=== PATIENT | male | born 1990 | race Caucasian/White ===

== ENCOUNTER 2024-09-03 18:12 | Emergency (ER) | payer SELFPAY ==
[2024-09-03 18:29] VITALS: BP 178/106; PULSE 129; TEMP 39.1; O2SAT 98; BMI 40.9
--- NOTE | 2024-09-03 18:36 | CT_ITS ---
[address] [address] Patient Name: DOROTHY REED MRN: [id number] date: 1990 Sex: M Assigned Patient Location: ED.MAIN Current Patient Location: ED.MAIN Accession/Order Number: [id number] Exam Date: 09/03/2024 19:20 Report Date: 09/03/2024 20:31 At the request of: TAMMY WALKER Procedure: CT abdomen pelvis w con EXAM: CT abdomen pelvis w con TECHNIQUE: Axial CT images were obtained of the abdomen and pelvis with intravenous contrast. Sagittal and coronal reformatted images were also obtained. Dose reduction techniques were achieved by using automated exposure control and/or adjustment of mA and/or kV according to patient size and/or use of iterative reconstruction technique. HISTORY: Abdominal pain COMPARISON: None. FINDINGS: Lower chest: The lower lungs are clear. Liver: Diffuse decreased attenuation of liver consistent with steatosis. Gallbladder: The gallbladder is unremarkable. There is no intra or extrahepatic biliary dilatation. Pancreas: The pancreas is homogeneous without evidence for mass lesion or inflammation. Spleen: The spleen is unremarkable without evidence for mass lesion. Adrenal glands: The adrenal glands are unremarkable Kidneys and bladder: The kidneys are unremarkable with no evidence for mass lesion, hydronephrosis or inflammation. The ureters demonstrate normal caliber. The urinary bladder is unremarkable. GI Tract: Stomach is unremarkable. No small bowel obstruction. There is wall thickening and inflammation of the terminal ileum. The appendix is thickened and ill-defined distally with severe surrounding inflammation.Moderate diverticulosis of the distal descending colon Reproductive: Unremarkable Lymph nodes: No retroperitoneal or abdominal lymphadenopathy. Vascular: The aorta is not dilated. Mesenteric, renal and iliac arteries are patent. Peritoneum: Inflammation in the right lower quadrant mesentery and pericolic fat. No evidence for focal abscess. Abdominal wall: Unremarkable without acute abnormality. CT/CT abdomen pelvis w con IMPRESSION: Findings suggesting severe acute appendicitis. The distal end of the appendix is poorly defined and rupture is not excluded. No evidence for focal abscess. Secondary wall thickening of the terminal ileum. Electronically authenticated by: CRISTIAN PINK Date: 09/03/2024 20:31
--- NOTE | 2024-09-03 18:37 | ED_ITS ---
HPI HPI - General Adult General Chief complaint: Abdominal Pain Stated complaint: Abdominal Pain Time Seen by Provider: 09/03/24 18:36 Source: patient Mode of arrival: walk-in History of Present Illness HPI narrative: Patient is a 34-year-old male who presents to the emergency department for a 1 week history of flulike illness. Patient states he started with cough and congestion and generalized abdominal pain. He states in the last 2 days the pain is localized to the right lower quadrant and is associated with diarrhea. He has been running fevers, last dose of Tylenol was 7 to 8 hours ago. He denies vomiting. No previous abdominal surgeries. No sick contacts in the home. Related Data Home Medications ?Medication ?Instructions ?Recorded ?Confirmed No Known Home Medications 09/03/24 09/03/24 Allergies Allergy/AdvReac Type Severity Reaction Status Date / Time Penicillins Allergy Severe Unknown Verified 09/03/24 18:29 Opioid HPI Opioid Management Most Recent Opioid Data: Last Pain Scale 2 09/03/24 19:33 09/03/24 Last ED Pain Assessment 09/03/24 19:33 Review of Systems ROS Constitutional Reports: fever; Denies: chills Ears, nose, mouth, and throat Reports: nasal congestion; Denies: throat pain Cardiovascular Denies: chest pain Respiratory Denies: shortness of breath Gastrointestinal Reports: abdominal pain and diarrhea; Denies: nausea or vomiting Musculoskeletal Denies: back pain Integumentary/Breast Denies: rash Neurological Denies: numbness in extremities or weakness in extremities Hematologic/Lymphatic Denies: easy bruising or easy bleeding [facility] Social History Little interest or pleasure in doing things: not at all Feeling down, depressed, or hopeless: not at all Exam Narrative Exam Narrative: Gen.: Awake, alert, in no distress Head: Normocephalic, atraumatic ENT: Moist mucous membranes Respiratory: No respiratory distress, lungs clear bilaterally Cardio: Tachycardia Gastrointestinal: Abdomen is soft, nondistended and tender to palpation with involuntary guarding to the right lower quadrant Extremities: Moves extremities equally Psych: Normal mood and affect Neuro: No focal neuro deficit Skin: Warm, dry, intact Constitutional Vital Signs, click to edit/add: Last Vital Signs Temp 102.3 F H 09/03/24 18:29 Pulse 113 H 09/03/24 20:39 Resp 24 H 09/03/24 20:39 BP 111/66 09/03/24 20:39 Pulse Ox 96 09/03/24 20:39 O2 Del Method Room Air 09/03/24 20:39 Course Vital Signs Vital signs: Vital Signs Temperature 102.3 F H 09/03/24 18:29 Pulse Rate 129 H 09/03/24 18:29 Respiratory Rate 18 09/03/24 18:29 Blood Pressure 178/106 H 09/03/24 18:29 Pulse Oximetry 98 09/03/24 18:29 Oxygen Delivery Method Room Air 09/03/24 18:29 Temperature 102.3 F H 09/03/24 18:29 Pulse Rate 113 H 09/03/24 20:39 Respiratory Rate 24 H 09/03/24 20:39 Blood Pressure 111/66 09/03/24 20:39 Pulse Oximetry 96 09/03/24 20:39 Oxygen Delivery Method Room Air 09/03/24 20:39 Medical Decision Making MDM Narrative Medical decision making narrative: Patient found to have fever, tachycardia but stable blood pressure. He was treated with Dilaudid, Toradol with improvement of fever and Zofran with IV fluids. He remains mildly tachycardic. Laboratory studies show leukocytosis with no bandemia and normal lactic acid. CT was read by the radiologist showing severe acute appendicitis, unable to fully assess for a possible rupture. Patient is allergic to penicillin so antibiotics were started, blood cultures are pending. Patient was made aware that we do not have surgical services at this facility and he will require transfer to a different facility in the area. Patient's family member requested transfer to [facility], however Dr. Quevedo ([id number]) declined the transfer. Patient is comfortable with transfer to [facility] and was accepted by [facility] surgeon, Dr. 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 Patient is stable with improved vital signs at this time pending transfer to [facility] Critical care time 35 minutes SHARED APC VISIT, PHYSICIAN ATTESTATION: [id number] I performed a substantive part of the MDM during the patient?s E/M visit. I personally evaluated and examined the patient. I personally made or approved the documented management plan and acknowledge its risk of complications. Medical Records Medical records reviewed: Yes I reviewed the patient's medical records Lab Data Lab results reviewed: Yes I reviewed the patient's lab results Labs: Lab Results 09/03/24 Range/Units 18:47 WBC 19.3 H (4.0-11.0) 10^3/uL RBC 4.23 L (4.70-6.10) 10^6/uL Hgb 12.7 L (14.0-18.0) g/dL Hct 38.4 L (42.0-54.0) % MCV 90.8 (80.0-94.0) fL MCH 30.0 (25.9-34.0) pg MCHC 33.1 (29.9-35.2) g/dL RDW 13.2 (11.0-15.0) % Plt Count 387 (150-450) 10^3/uL MPV 10.7 (9.5-13.5) fL Seg Neuts % (Manual) 78.0 H (43.0-75.0) Lymphocytes % (Manual) 11.0 L (20.5-60.0) % Monocytes % (Manual) 11.0 (1.7-12.0) % Eosinophils % (Manual) 0.0 L (0.9-7.0) % Basophils % (Manual) 0.0 L (0.2-2.0) % Neutrophils # (Manual) 15.05 H (1.4-6.5) 10^3/uL Lymphocytes # (Manual) 2.12 (1.20-3.80) 10^3/uL Monocytes # (Manual) 2.12 H (0.30-0.80) 10^3/uL Eosinophils # (Manual) 0.00 (0.00-0.70) 10^3/uL Basophils # (Manual) 0.00 (0.00-0.10) 10^3/uL ESR 73 H (<=15) mm/hr VBG pH 7.447 H (7.330-7.430) VBG pCO2 39.8 L (40.0-52.0) mmHg Sodium 137 (136-145) mmol/L Potassium 3.8 (3.5-5.1) mmol/L Chloride 100 (98-107) mmol/L Carbon Dioxide 27.7 (21.0-32.0) mmol/L Anion Gap 13.1 BUN 11.0 (7.0-18.0) mg/dL Creatinine 1.35 H (0.70-1.30) mg/dL Est GFR ( Amer) >60 (>=60 mL/min/1.73m^2) Est GFR (Non-Af Amer) >60 (>=60 mL/min/1.73m^2) BUN/Creatinine Ratio 8.1 Glucose 115 H (74-106) mg/dL Lactate 1.2 (0.4-2.0) mmol/L Calcium 8.8 (8.5-10.1) mg/dL Total Bilirubin 0.5 (0.2-1.0) mg/dL AST 29 (15-37) U/L ALT 44 (16-63) U/L Alkaline Phosphatase 92 (46-116) U/L C-Reactive Protein 10.43 H (<=0.50) mg/dL Total Protein 7.9 (6.4-8.2) g/dL Albumin 3.2 L (3.4-5.0) g/dL Globulin 4.7 g/dL Albumin/Globulin Ratio 0.7 Monoscreen Negative (NEGATIVE) Imaging Data CT scan - abdomen: Attestation: I have reviewed the pertinent imaging results. Radiologist's impression: ITS Impressions Abdomen/Pelvis CT 09/03/24 18:36 IMPRESSION: Findings suggesting severe acute appendicitis. The distal end of the appendix is poorly defined and rupture is not excluded. No evidence for focal abscess. Secondary wall thickening of the terminal ileum. Electronically authenticated by: CRISTIAN PINK Date: 09/03/2024 20:31 ECG Data Attestation: I personally reviewed and interpreted this ECG as follows: (Sinus tachycardia at a rate of 116, no acute ST elevation or ectopy. EKG reviewed by attending physician) Discharge Plan Discharge Chief Complaint: Abdominal Pain Clinical Impression: Abdominal pain, Acute appendicitis, Sepsis Patient Disposition: [facility] Time of Disposition Decision: 20:37 Discharge location: [facility] Mode of Transportation: EMS
[2024-09-03 19:03] LABS: Hematocrit 38.4 % (42.0-54.0); Hemoglobin 12.7 g/dL (14.0-18.0); Mean Corpuscular HGB Conc 33.1 g/dL (29.9-35.2); Mean Corpuscular Volume 90.8 fL (80.0-94.0); Mean Platelet Volume 10.7 fL (9.5-13.5); Platelet Count 387 10^3/uL (150-450); Red Blood Count 4.23 10^6/uL (4.70-6.10); Red Cell Distribution Width 13.2 % (11.0-15.0); White Blood Count 19.3 10^3/uL (4.0-11.0)
[2024-09-03 19:04] LABS: PCO2 VBG 39.8 mmHg (40.0-52.0); pH VBG 7.447 (7.330-7.430)
[2024-09-03] MEDS: 0.9 % SODIUM CHLORIDE 1,000 ML 999 ML IV (19:07)
[2024-09-03] MEDS: HYDROMORPHONE HCL 1 MG/ML CARTRIDGE IV ×2 (19:09→22:54)
[2024-09-03 19:12] LABS: Erythrocyte Sedimentation Rate 73 mm/hr (<=15)
[2024-09-03] MEDS: KETOROLAC TROMETHAMINE 30 MG/ML VIAL IVP (19:14)
[2024-09-03 19:15] LABS: Internal Control Within Normal Limits; Mono Screen NEGATIVE (NEGATIVE)
[2024-09-03 19:23] LABS: Alanine Aminotransferase 44 U/L (16-63); Albumin Globulin Ratio 0.7; Albumin Level 3.2 g/dL (3.4-5.0); Alkaline Phosphatase 92 U/L (46-116); Anion Gap 13.1; Aspartate Amino Transferase 29 U/L (15-37); BUN Creatinine Ratio 8.1; Bilirubin Total 0.5 mg/dL (0.2-1.0); C Reactive Protein 10.43 mg/dL (<=0.50); Calcium 8.8 mg/dL (8.5-10.1); Carbon Dioxide 27.7 mmol/L (21.0-32.0); Chloride 100 mmol/L (98-107); Estimated GFR (African America >60 (>=60 mL/min/1.73m^2); Estimated GFR (Non-African Ame >60 (>=60 mL/min/1.73m^2); Globulin 4.7 g/dL; Glucose 115 mg/dL (74-106); Potassium 3.8 mmol/L (3.5-5.1); Sodium 137 mmol/L (136-145); Total Protein 7.9 g/dL (6.4-8.2)
[2024-09-03 19:25] LABS: Lactate/Lactic Acid 1.2 mmol/L (0.4-2.0)
[2024-09-03 19:54] LABS: Lymphocytes Absolute Manual 2.12 10^3/uL (1.20-3.80); Segmented Neut Absolute Manual 15.05 10^3/uL (1.4-6.5)
[2024-09-03 19:55] LABS: Monocytes Absolute Manual 2.12 10^3/uL (0.30-0.80)
--- NOTE | 2024-09-03 20:25 | ECG_ITS ---
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
[2024-09-03 20:39] VITALS: BP 111/66; PULSE 113; O2SAT 96
[2024-09-03] MEDS: CIPROFLOXACIN IN 5 % DEXTROSE 400 MG/200 ML PREMIX 200 MG IV (20:48)
--- NOTE | 2024-09-03 21:00 | PC.NURSE ---
Cipro started. Patient C/O some itching and slight redness at site. Site marked, PA aware. OK to continue.
[2024-09-03] MEDS: METRONIDAZOLE/SODIUM CHLORIDE 500 MG/100 ML PREMIX 100 MG IV (22:10)
[2024-09-03 22:29] VITALS: BP 117/82; PULSE 98; TEMP 37.1; O2SAT 96
--- NOTE | 2024-09-03 23:07 | PC.NURSE ---
Report to Katy mccoy [facility]. Flagyl infusing at discharge
== END 2024-09-03 23:10 | disposition short-term general hospital (02) ==
PROVIDERS: Physician Assistant; Emergency Provider Emergency Medicine
DX: A41.9 Sepsis, unspecified organism (principal); K35.80 Unspecified acute appendicitis; R50.9 Fever, unspecified; Z88.0 Allergy status to penicillin; R10.31 Right lower quadrant pain
CPT/HCPCS: 36415; 74177; 80053; 81001; 82800; 83605; 85007; 85027; 85652; 86140; 86308; 87040; 87804; 87811; 93005; 96361; 96365; 96367; 96375; 96376; 99285; J0744; J1171; J1836; J1885; Q9967